=== PATIENT | female | born 1940 | race Caucasian/White ===

== ENCOUNTER → 2016-02-25 | Outpatient (CLI) | payer MEDICARE ==
[~2016-02-25] MED LIST: ATIVAN GENERIC0.5 MG PO; ATIVAN0.5 MG PO; BUMETANIDE 1MG T1 MG PO; CIPRO 250MG TA250 MG PO; CITALOPRAM HYDR20 MG PO; K-DUR 2020 MEQ PO; KEFLEX 500MG.500 MG PO; LEVOTHYROXIN0.025 M1 PO; MYCOSTATIN100000 U/G EX; NORCO 325 MG-51 TAB PO; PHENERGAN 25MG.25 MG PR; POLY-IRON 150150 MG PO
--- NOTE | 2016-02-25 13:36 | RADIOLOGY REPORT PS360 ---
WRIST-3 VIEWS-RT HISTORY: Follow-up fracture FX RT RADIUS COMPARISON: 02/08/2017 FINDINGS: Status post ORIF distal radial and ulnar fracture. Radial bone plate with multiple screws present along with a transverse pin extending from the distal ulna transversely into the distal radius. There is been improvement in the displacement and malalignment compared to the prereduction image. There is some mild callus formation consistent with healing. IMPRESSION: Healing distal radial and ulnar fractures status post ORIF
== END ==
LOC: RAD 12:36
DX: S52.501E Unspecified fracture of the lower end of right radius, subsequent encounter for open fracture type I or II with routine healing (principal)

== ENCOUNTER → 2016-05-14 | Outpatient (CLI) | payer MEDICARE ==
--- NOTE | 2016-05-14 17:32 | RADIOLOGY REPORT PS360 ---
BONE DENSITOMETRY(HIP:LT SPINE HISTORY: POST MENOPAUSAL ORDERING PHYSICIAN: Tobin Campos MD PATIENT AGE: 76 years COMPARISON: None FINDINGS: The BMD measured at the L1-L4 is 0.713 g/sq cm with a T score of -3.9. This is consistent with osteoporosis. Fracture risk is high. Treatment should be initiated. The mean density of the hips is 0.607 g/sq cm with T score of -3.1 also consistent with osteoporosis. IMPRESSION: Osteoporosis with high fracture risk. Recommend follow-up exam April 2017
== END ==
LOC: RAD 13:01
DX: M81.0 Age-related osteoporosis without current pathological fracture (principal)

== ENCOUNTER 2017-01-19 17:28 | Emergency (ER) | payer MEDICARE ==
[~2017-01-19] VITALS: Ht 165.1 cm; Wt 85.7 kg
[~2017-01-19 17:28] MED LIST changes: +CLARITIN-D 10 M1 T24 PO
--- OUTSIDE RECORDS SUMMARY | 2017-01-19 17:34 | External Medical Summary Rpt | CCD ---
Author Author [employer] Organization [employer] Address Unknown Phone Unavailable Purpose Continuity of Care Document - through 2016
--- OUTSIDE RECORDS SUMMARY | 2017-01-19 17:34 | External Medical Summary Rpt | CCD ---
Author Author , FRANKI DOAN Address Unknown Phone Purpose Continuity of Care Document - through 2016 Problems Code Diagnosis DOS Provider Status N39.0 URINARY TRACT INFECTION, SITE NOT SPECIFIED R42 DIZZINESS AND GIDDINESS R51 HEADACHE R60.0 LOCALIZED EDEMA S00.93XA CONTUSION OF UNSPECIFIED PART OF HEAD, INITIAL ENCOUNTER S62.101A FRACTURE OF UNSP CARPAL BONE, RIGHT WRIST, INIT FOR CLOS FX
--- OUTSIDE RECORDS SUMMARY | 2017-01-19 17:34 | External Medical Summary Rpt | CCD ---
Author Author , FRANKI Organization FRANKI Address Unknown Phone [email or web address] Happen Immunization Name Date Rout CVX Reac Dose Comm Prov Is Faci e tion ent ider Refu lity Give sed n Td 09-2 9 999 Hist H201 No H201 (billie 3-20 oric lt), 00 al Info adso rmat rbed ion - Sour ce Unsp ecif ied
--- OUTSIDE RECORDS SUMMARY | 2017-01-19 17:34 | External Medical Summary Rpt | CCD ---
Author Author , FRANKI Organization [employer] Address Unknown Phone [email or web address] Immunization Name Date Rout CVX Reac Dose Comm Prov Is Faci e tion ent ider Refu lity Give sed n Td 09-2 9 999 Hist H201 No H201 (billie 3-20 oric lt), 00 al Info adso rmat rbed ion - Sour ce Unsp ecif ied
--- OUTSIDE RECORDS SUMMARY | 2017-01-19 17:35 | External Medical Summary Rpt ---
Author Author FRANKI Collins, [employer] Organization [employer] Address Unknown Phone Unavailable
--- NOTE | 2017-01-19 18:13 | Urgent Treatment Center Report ---
History of Present Issue Date/Time Seen by Provider 01/19/17 1750 Visit Reason Pt arrived:Walked Presenting Problem:PT STATES SHE FELL AND INJURED THE TOP OF HER LEFT FOOT Location if Accident: Onset of symptoms date/time:/ or onset unknown for:MEDICAL HX UNKNOWN Have you (or family members/close friends) recently traveled outside the [place]? N If Yes, where/when: Have you had exposure to infectious disease within the past month? TB? Other? Specify: Patient fell earlier today and injuried the top of her foot on the outter aspect of foot down from her pinky toe State that when she went to step she felt pain and family wanted her to come in and get her foot xrayed to see if she had broken anything ALLERGIES Coded Allergies: Penicillins (02/09/16) Sulfa (Sulfonamide Antibiotics) (02/09/16) nitrofurantoin (From MACROBID) (02/09/16) Home Medications Reported Medications IRON POLYSACCHARIDE COMPLEX (Poly-Iron) 150 MG PO DAILY #90 Levothyroxine Sodium (Levothyroxine 0.025MG) 0.025 MG PO DAILY #45 Citalopram Hydrobromide (Citalopram HBr) 20 MG PO DAILY #90 Bumetanide (Bumetanide 1MG Tablet) 1 MG PO DAILY #90 Potassium Chloride (K-Dur) 20 MEQ PO DAILY #90 Lorazepam (Ativan) 0.5 MG PO TIDP PRN NERVES #50 LORATADINE/PSEUDOEPHEDRINE (Claritin-D 24 Hour Tablet) 1 T24 PO DAILY History Medical History General CAD? No Angina: No KS: No Hypertension? No Hyperlipidemia? No CHF? Yes DVT? No PE? No COPD? No Asthma? Yes Anemia? No GERD? No Gastric ulcers? No GI Bleed? No Hernia? No Thyroid Problems? Yes Hypothyroidism? Yes CVA? No Seizures? No Diabetes? No Renal Insuffiency? No UTI? Yes Stones? No BPH? No GB Disease: No Nephritic Syndrome? No Asplenia? No Hepatitis? Yes Sickle Cell Disease? No Arthritis? No Migraines? No Cataracts? No Glaucoma? No MRSA? No HIV? No TB? No Anxiety? No Depression? No Cancer? Yes Site: COLON More? No Immunization HX DT/Tetanus Unknown Flu Refused Pneumonia Received In Past Surgical Hx Previous Surgery?Y HYSTERECTOMY FIBROID TUMOR REMOVED COLON POLYP REMOVED R RADIAL/ULNA REPAIR Family History Family HX Diabetes Yes CAD Yes Hypertension Yes Hyperlipidemia Yes Cancer Yes TB No Social History Smoking Hx Smoker: Never Smoker Tobacco: No Packs/day N/A Alcohol Alcohol: No Review of Systems All Other Systems Reviewed and Negative Physical Exam Vital Signs Vital Signs Date Time Temp Pulse Resp B/P Pulse O2 O2 Flow FiO2 Ox Delivery Rate 01/19 1736 98.7 74 20 106/68 98 General Appearance normal appearance, WD/WN, no apparent distress Respiratory Status Yes: trachea midline, chest symmetrical, non tender chest. No: respiratory distress. Lung Sounds bilateral: normal breath sounds, lungs clear. Cardiovascular normal exam, regular rate/rhythm, no peripheral edema Extremities Pain in top of foot below the 5th toe no bruising no discoloration mild swelling good pulses Neurologic alert, normal exam, oriented x 3 Medical Decision Making LABS/Meds/Orders Pt receiving controlled substance in ED? No Results/Orders Orders Procedure Date/time Status FOOT-LT-3 VIEWS 01/19 1738 Active XRAY/CT/US XRAY/CT/US XRAY ankle XR interpretation by reviewed by me Xray Results no fracture seen Comment discussed with Dr Jones Departure Departure Time of Disposition 1807 Disposition DC Home or Self Care(routine) Clinical Impression Primary Impression: Foot sprain Qualifiers: Encounter type: initial encounter Laterality: left Qualified Code: S93.602A - Unspecified sprain of left foot, initial encounter Condition STABLE Referrals Andres NINO,Tobin Youssef (Family): 3 Days-Call Office Marlys NINO,Varun BIGGS MD, OLE SINGH Patient Instructions DI for Foot Sprain, How To Perform RICE (Rest, Ice, Compress, Elevate), Ibuprofen Additional Instructions *weight bearing as tolerated *RICE, Rest the extremity, Ice 15-20 minutes 3-4 times daily, Compress- wear the antolin wrap as discussed as much as possible to help reduce swelling and pain, Elevate the extremity when at rest *Antolin wrap is for support and help control swelling, use it except in the shower. Be sure that is not to tight but not to loose either *Elevate when resting *Ibuprofen 600-800mg every 6-8 hours as needed for pain an inflammation. If need something more can take Tylenol in between doses of Ibuprofen to help Immediately follow up for new or worsening of symptoms, or no noticeable improvement over the next 3-5 days Use walker for walking next few weeks Over the counter Motrin for pain Sit on stool when at work to help prevent swelling Return if needed If pain persist follow up with family doctor or Orthopedics Discharge Counseling Counseled pt/family regarding diagnosis, test results, medications/RX, home care at [phone]
[2017-01-19 18:16] VITALS: BP 106/68
--- NOTE | 2017-01-19 20:18 | RADIOLOGY REPORT PS360 ---
FOOT-LT-3 VIEWS HISTORY: Post traumatic pain FELL ORDERING PHYSICIAN: NAKIA GALLEGOS APRN PATIENT AGE: 76 years COMPARISON: None FINDINGS: No fracture or dislocation. No lytic or blastic change. There is normal mineralization.. The joint spaces are well-preserved. No significant degenerative/arthritic changes. No erosive changes evident. IMPRESSION: Negative left foot, no acute finding
== END 2017-01-19 18:21 | disposition home or self-care (01) ==
LOC: UTC 17:28
DX: S93.602A Unspecified sprain of left foot, initial encounter (principal); J45.909 Unspecified asthma, uncomplicated; E03.9 Hypothyroidism, unspecified; W01.0XXA Fall on same level from slipping, tripping and stumbling without subsequent striking against object, initial encounter